=== PATIENT | female | born 1985 ===

== ENCOUNTER 2018-03-08 15:12 | Emergency (ER) | payer BC, OTHER ==
[2018-03-08 15:41] VITALS: BMI 21.6
--- NOTE | 2018-03-08 16:03 | C.PDOC ---
Time Seen by Provider: 03/08/18 15:59 Chief Complaint (Nursing): Abdominal Pain Past Medical History Vital Signs: Last Vital Signs Temp 98.6 F 03/08/18 15:37 Pulse 69 03/08/18 15:37 Resp 18 03/08/18 15:37 BP 113/73 03/08/18 15:37 Pulse Ox 100 03/08/18 15:37 - [facility] Procedures EXTRACTION OF POC, LOW CERVICAL, OPEN APPROACH (05/16/16) - Social History Hx Alcohol Use: No Hx Substance Use: No - Immunization History Hx Tetanus Toxoid Vaccination: No Hx Influenza Vaccination: No Hx Pneumococcal Vaccination: No ED Course And Treatment O2 Sat by Pulse Oximetry: 100 Disposition - Disposition
--- NOTE | 2018-03-08 16:08 | C.PDOC ---
History Of Present Illness 33 year old female, , presents to the ED c/o recurrent vaginal bleeding for the past 1 week. Patient reports 1st episode started last week, recurrent today. Patient noticed clots associated with abdominal cramping. Patient denies fever, chills, nausea, vomit, diarrhea, dysuria, hematuria, back pain, vaginal discharge. RECUR VB X 1 WEEK. 1ST EPISODE LAST WEEK, RECUR TODAY. +CLOT CRAMPING. NO OTHER ASSOC SX EXAM NEG <KarlosMatilde - Last Filed: 03/08/18 18:52> History Per: Patient History/Exam Limitations: no limitations Onset/Duration Of Symptoms: Days (week) Current Symptoms Are (Timing): Still Present Quality Of Discomfort: Cramping Associated Symptoms: denies: Nausea, Vomiting, Diarrhea, Urinary Symptoms Recent travel outside of the [place]: No Additional History Per: Patient Abnormal Vaginal Bleeding: Yes : 4 Para: 3 <Matilde Everett - Last Filed: 03/08/18 18:52> <Shavon Grey - Last Filed: 03/08/18 20:20> Time Seen by Provider: 03/08/18 15:59 Chief Complaint (Nursing): Abdominal Pain Past Medical History Reviewed: Historical Data, Nursing Documentation, Vital Signs Vital Signs: Last Vital Signs Temp 98.6 F 03/08/18 15:37 Pulse 69 03/08/18 15:37 Resp 18 03/08/18 15:37 BP 113/73 03/08/18 15:37 Pulse Ox 100 03/08/18 15:37 - Medical History PMH: No Chronic Diseases Surgical History: No Surg Hx - [facility] Procedures EXTRACTION OF POC, LOW CERVICAL, OPEN APPROACH (05/16/16) Family History: States: Unknown Family Hx - Social History Hx Alcohol Use: No Hx Substance Use: No - Immunization History Hx Tetanus Toxoid Vaccination: No Hx Influenza Vaccination: No Hx Pneumococcal Vaccination: No <Matilde Everett - Last Filed: 03/08/18 18:52> Vital Signs: Last Vital Signs Temp 98.5 F 03/08/18 19:50 Pulse 73 03/08/18 19:50 Resp 20 03/08/18 19:50 BP 99/63 L 03/08/18 19:50 Pulse Ox 98 03/08/18 19:50 - [facility] Procedures EXTRACTION OF POC, LOW CERVICAL, OPEN APPROACH (05/16/16) <Shavon Grey - Last Filed: 03/08/18 20:20> Review Of Systems Constitutional: Negative for: Fever, Chills Cardiovascular: Negative for: Chest Pain Respiratory: Negative for: Shortness of Breath Gastrointestinal: Negative for: Nausea, Vomiting, Abdominal Pain Genitourinary: Positive for: Vaginal Bleeding. Negative for: Dysuria, Hematuria Musculoskeletal: Negative for: Back Pain Skin: Negative for: Rash Neurological: Negative for: Weakness, Numbness <Matilde Everett Last Filed: 03/08/18 18:52> Physical Exam - Physical Exam Appears: Non-toxic, No Acute Distress Skin: Normal Color, Warm, Dry Head: Atraumatic, Normacephalic Eye(s): bilateral: Normal Inspection Oral Mucosa: Moist Neck: Normal ROM, Supple Chest: Symmetrical Cardiovascular: Rhythm Regular Respiratory: Normal Breath Sounds, No Rales, No Rhonchi, No Wheezing Gastrointestinal/Abdominal: Soft, No Tenderness, No Guarding, No Rebound Back: No CVA Tenderness Extremity: Normal ROM, No Tenderness, No Swelling Neurological/Psych: Oriented x3, Normal Speech, Normal Cognition Gait: Steady <Matilde Everett Last Filed: 03/08/18 18:52> ED Course And Treatment - Laboratory Results Result Diagrams: 03/08/18 16:15 03/08/18 16:15 O2 Sat by Pulse Oximetry: 100 (On RA) Pulse Ox Interpretation: Normal <Matilde Everett Last Filed: 03/08/18 18:52> - Laboratory Results Result Diagrams: 03/08/18 16:15 03/08/18 16:15 Pulse Ox Interpretation: Normal - CT Scan/US Pelvic US Other Rad Studies (CT/US): Read By Radiologist, Radiology Report Reviewed CT/US Interpretation: Date of service: 03/08/2018. PROCEDURE: OB Pelvic Ultrasound. HISTORY: VB RO ECTOPIC. LMP: 12/25/2017. COMPARISON: None available. FINDINGS: UTERUS: Gestational sac: Single intrauterine gestation. Heart rate: Not appreciated . age (Ultrasound estimated): 7 weeks 3 days +/-0 weeks 4 days. Alta-gestational hemorrhage: There is subchorionic hemorrhage measures 1.9 x 1.4 x 3.1 centimeter. Date of delivery (Ultrasound estimated) : 10/22/2018. Uterus measures 8.5 x 8.3 x 7.5 cm. The uterus is retroverted but otherwise normal in size and appearance. CERVIX: Measures 3.5 cm. Long and closed. No cervical abnormality seen. RIGHT OVARY: Measures 3.7 x 2.4 x 1.9 cm. No mass lesion. Normal flow. Corpus luteum cyst noted in the right ovary measures 1.4 x 1.1 x 1.1 centimeter. LEFT OVARY: Measures 2.9 x 1 x 3.1 cm. No solid mass. Normal flow. FREE FLUID: None. OTHER FINDINGS: None. IMPRESSION: Single intrauterine . The CRL measures 0.9 centimeter corresponding to gestational age of 7 weeks. No heart appreciated in this study. The possibility of demise should be considered. Subchorionic hemorrhage measures 1.9 x 1.4 x 3.1 centimeter. <Shavon Grey - Last Filed: 03/08/18 20:20> Medical Decision Making Medical Decision Making: Plan: * Labs * UA * Pelvic US <Matilde Everett - Last Filed: 03/08/18 18:52> Disposition - Disposition Disposition Time: 19:00 <Matilde Everett Filed: 03/08/18 18:52> Counseled Patient/Family Regarding: Studies Performed, Diagnosis, Need For Followup <Shavon Grey - Last Filed: 03/08/18 20:20> - Disposition Referrals: [facility] [Outside] [facility] [Outside] Disposition: HOME/ ROUTINE Condition: FAIR Additional Instructions: Please return if symptoms recur Instructions: Threatened Miscarriage (DC) Forms: [email or web address] (Greenlandic) - Clinical Impression Clinical Impression: Threatened miscarriage, Subchorionic hemorrhage - Scribe Statement The provider has reviewed the documentation as recorded by the Scribe Jude East All medical record entries made by the Scribe were at my direction and personally dictated by me. I have reviewed the chart and agree that the record accurately reflects my personal performance of the history, physical exam, medical decision making, and the department course for this patient. I have also personally directed, reviewed, and agree with the discharge instructions and disposition. <Matilde Everett - Last Filed: 03/08/18 18:52> Physician Patient Turnover Patient Signed Over To: Shavon Grey Handoff Comments: fu us, dispo <Matilde Everett - Last Filed: 03/08/18 18:52>
[2018-03-08 16:21] LABS: BASO % 0.5 % (0.0-2.0); EOS # 0.4 K/uL (0.0-0.7); EOS % 5.4 % (0.0-4.0); LYMPH # 2.5 K/uL (1.0-4.3); LYMPH % 30.6 % (20.0-40.0); MEAN CELL VOLUME 86.5 fL (81.0-99.0); MEAN CORPUSCULAR HEMOGLOBIN 29.8 pg (27.0-31.0); MEAN CORPUSCULAR HGB CONC 34.5 g/dL (33.0-37.0); MEAN PLATELET VOLUME 8.5 fL (7.2-11.7); MONO # 0.4 K/uL (0.0-0.8); MONO % 5.2 % (0.0-10.0); NEUT # 4.7 K/uL (1.8-7.0); NEUT % 58.3 % (50.0-75.0); RBC 4.69 Mil/uL (3.80-5.20); RED CELL DISTRIBUTION WIDTH 13.3 % (11.5-14.5); WHITE BLOOD COUNT 8.1 K/uL (4.8-10.8)
[2018-03-08 16:39] LABS: ALB/GLOB RATIO 1.5 (1.0-2.1); ALBUMIN 4.7 g/dL (3.5-5.0); ALT/SGPT 18 U/L (9-52); AST/SGOT 23 U/L (14-36); BLOOD UREA NITROGEN 8 mg/dL (7-17); CALCIUM 9.3 mg/dl (8.6-10.4); GFR NON-AFRICAN AMERICAN > 60
[2018-03-08 17:06] LABS: SQUAMOUS EPITHIAL 1 /hpf (0-5); URINE BACTERIA RARE (<OCC); URINE BILIRUBIN NEGATIVE (NEGATIVE); URINE BLOOD NEGATIVE (NEGATIVE); URINE CLARITY Clear (Clear); URINE COLOR Yellow (YELLOW); URINE GLUCOSE (UA) NORMAL (Normal); URINE LEUKOCYTE ESTERASE NEG Leu/uL (Negative); URINE PROTEIN NEGATIVE (NEGATIVE); URINE UROBILINOGEN NORMAL mg/dL (0.2-1.0)
--- NOTE | 2018-03-08 19:27 | US ---
Date of service: 03/08/2018 PROCEDURE: OB Pelvic Ultrasound HISTORY: VB RO ECTOPIC LMP: 12/25/2017 COMPARISON: None available. FINDINGS: UTERUS: Gestational sac: Single intrauterine gestation. Heart rate: Not appreciated . age (Ultrasound estimated): 7 weeks 3 days +/-0 weeks 4 days Alta-gestational hemorrhage: There is subchorionic hemorrhage measures 1.9 x 1.4 x 3.1 centimeter. Date of delivery (Ultrasound estimated) : 10/22/2018 Uterus measures 8.5 x 8.3 x 7.5 cm. The uterus is retroverted but otherwise normal in size and appearance. CERVIX: Measures 3.5 cm. Long and closed. No cervical abnormality seen. RIGHT OVARY: Measures 3.7 x 2.4 x 1.9 cm. No mass lesion. Normal flow. Corpus luteum cyst noted in the right ovary measures 1.4 x 1.1 x 1.1 centimeter LEFT OVARY: Measures 2.9 x 1 x 3.1 cm. No solid mass. Normal flow. FREE FLUID: None. OTHER FINDINGS: None. IMPRESSION: Single intrauterine . The CRL measures 0.9 centimeter corresponding to gestational age of 7 weeks. No heart appreciated in this study. The possibility of demise should be considered. Subchorionic hemorrhage measures 1.9 x 1.4 x 3.1 centimeter.
[2018-03-08 19:51] VITALS: BP 99/63; PULSE 73; RESP 20; TEMP 98.5; O2SAT 98
== END 2018-03-08 20:31 | disposition home or self-care (01) ==
LOC: C.ER 15:12
DX: O20.0 Threatened abortion (principal); Z3A.01 Less than 8 weeks gestation of pregnancy